=== PATIENT | male | born 1955 | race American Indian/Alaskan Native ===

== ENCOUNTER 2021-12-02 09:28 | Emergency (ER) | payer MEDICARE, MEDICAID ==
--- NOTE | 2021-12-02 12:42 | Emergency Department Report ---
ED General Adult HPI - General Chief complaint: Pain General Stated complaint: UNABLE TO URINATE Source: patient Mode of arrival: Ambulatory Limitations: No Limitations - History of Present Illness Initial comments: 65-year-old male with a history of BPH who presents with unable to urinate since yesterday morning associated with suprapubic discomfort. Patient denies any fever or chills. Patient reported that he has been trying to get with the urology but has not got around it. No urethral discharge or scrotal swelling reported. No other modifying or associated factors reported. Severity scale (0 -10): 10 - Related Data Allergies Allergy/AdvReac Type Severity Reaction Status Date / Time No Known Allergies Allergy Verified 12/02/21 09:44 ED Review of Systems ROS: Stated complaint: UNABLE TO URINATE Other details as noted in HPI Comment: All other systems reviewed and negative Constitutional: denies: chills, fever, malaise Genitourinary: other (Urinary retention). denies: urgency, hematuria, discharge, testicular pain, testicular mass ED Past Medical Hx - Social History Smoking Status: Unknown if ever smoked Substance Use Type: None ED Physical Exam - General Limitations: No Limitations General appearance: alert, in distress (Due to urinary retention and suprapubic discomfort) - ENT ENT exam: Present: normal exam, normal orophraynx, mucous membranes moist - Neck Neck exam: Present: normal inspection. Absent: tenderness - Respiratory Respiratory exam: Present: normal lung sounds bilaterally. Absent: respiratory distress, accessory muscle use - Cardiovascular Cardiovascular Exam: Present: regular rate, normal rhythm, normal heart sounds - GI/Abdominal GI/Abdominal exam: Present: soft, tenderness (suprapubic ), normal bowel sounds. Absent: distended - Extremities Exam Extremities exam: Present: normal inspection, normal capillary refill. Absent: tenderness - Back Exam Back exam: Absent: tenderness - Neurological Exam Neurological exam: Present: alert, oriented X3 - Psychiatric Psychiatric exam: Present: normal affect - Skin Skin exam: Present: warm ED Course Vital Signs 12/02/21 09:42 Temperature 98.9 F Pulse Rate 83 Respiratory 22 Rate Blood Pressure 217/102 [Right] O2 Sat by Pulse 100 Oximetry - Reevaluation(s) Reevaluation #1: 12/02/21 12:43 here with urinary retention -- with h/o BPH-- this is likely as result of his prostate hyperplasia but could not rule out UTI-- so will check Urinalysis and place diaz catheter. Reevaluation #2: 12/02/21 12:[address] and patient reports instant improvement-- with about 1L urine return Critical care attestation.: If time is entered above; I have spent that time in minutes in the direct care of this critically ill patient, excluding procedure time. ED Disposition Clinical Impression: Urinary retention due to benign prostatic hyperplasia Disposition: HOME / SELF CARE / HOMELESS Is pt being admited?: No Does the pt Need Aspirin: No Condition: Stable Instructions: Acute Urinary Retention, Male, [id number] Additional Instructions: It is very important that you call and follow-up with your primary doctor/urology in the next 48 to 72 hours to have your Diaz catheter evaluated for possible removal to prevent iatrogenic infection. Is okay to take Tylenol/ibuprofen every 6-8 hours for discomfort Please do not hesitate to call or return to emergency if your symptoms worsen Referrals: ANIBAL RODRIGUEZ MD [Referring] - 3-5 Days Time of Disposition: 12:46
[2021-12-02 14:33] VITALS: BP 112/63
[2021-12-02 16:21] LABS: Bilirubin,Urine Negative (Negative); Blood,Urine Negative (Negative); Color,Urine Yellow (Yellow); Protein,Urine <15 mg/dL mg/dL (Negative)
--- NOTE | 2021-12-02 16:43 | Event Note ---
Date: 12/02/21 Patient was signed out by me by Dr. Thompson patient's urinalysis and is unremarkable patient can be discharged home
== END 2021-12-02 17:06 | disposition home or self-care (01) ==
LOC: ED 09:28
DX: R33.9 Retention of urine, unspecified (principal); D29.1 Benign neoplasm of prostate
CPT/HCPCS: 51702; 81001; 99283

== ENCOUNTER 2021-12-03 14:51 | Emergency (ER) | payer MEDICARE ==
[2021-12-03 18:20] VITALS: BP 140/80
== END 2021-12-04 00:11 | disposition left against medical advice (07) ==
LOC: ED 14:51
DX: T83.83XA Hemorrhage due to genitourinary prosthetic devices, implants and grafts, initial encounter (principal); Z53.21 Procedure and treatment not carried out due to patient leaving prior to being seen by health care provider; Y83.9 Surgical procedure, unspecified as the cause of abnormal reaction of the patient, or of later complication, without mention of misadventure at the time of the procedure; Y92.89 Other specified places as the place of occurrence of the external cause